=== PATIENT | female | born 1980 | race Caucasian/White ===

== ENCOUNTER 2018-08-31 19:57 | Emergency (ER) | payer OTHER ==
[~2018-08-31] VITALS: Ht 162.5 cm; Wt 59.0 kg
[2018-08-31 19:57] VITALS: BP 115/64
[~2018-08-31 19:57] MED LIST: BACTRIM DS 8001 TA1 PO; CEPHALEXIN500 M1 PO; CIPRO500 MG PO; DARVOCET N 1001 TAB PO; FLAGYL500 MG PO; GEODON40 MG PO; HYDROCODONE BIT1 T11 PO; LAMICTAL25 MG PO; LITHIUM CARBON300 MG PO; MOTRIN800 MG PO; Motrin,Rufen800 MG PO; PRAZOSIN HCL2 MG PO; ZYPREXA5 M1 PO; Zofran4 MG PO
[2018-08-31 20:46] LABS: BILIRUBIN NEGATIVE (NEGATIVE); BLOOD TRACE-LYSED (NEGATIVE); CLARITY CLEAR (CLEAR); COLOR YELLOW (YELLOW); GLUCOSE NEGATIVE (NEGATIVE); KETONE NEGATIVE (NEGATIVE); LEUKO ESTERASE TRACE (NEGATIVE); NITRITE NEGATIVE (NEGATIVE); UROBILINOGEN 0.2 E.U./dl (0.2-1.0)
[2018-08-31 21:08] LABS: BACTERIA 1+; MUCOUS TRACE; WBC 16-20 wbc/hpf (0-5)
[2018-08-31] MEDS ORDERED: FLAGYL500 MG PO (21:15)
== END 2018-08-31 21:29 | disposition home or self-care (01) ==
LOC: ED 19:57
PROVIDERS: Nurse Practitioner Family
DX: S62.367A Nondisplaced fracture of neck of fifth metacarpal bone, left hand, initial encounter for closed fracture (principal); A59.01 Trichomonal vulvovaginitis; Z79.899 Other long term (current) drug therapy; X58.XXXA Exposure to other specified factors, initial encounter; Y93.89 Activity, other specified; Y92.89 Other specified places as the place of occurrence of the external cause; Y99.8 Other external cause status

== ENCOUNTER 2019-03-11 09:23 | Emergency (ER) | payer OTHER ==
[~2019-03-11] VITALS: Ht 162.5 cm; Wt 59.0 kg
[~2019-03-11 09:23] MED LIST changes: +PREDNISONE20 M1 PO
[2019-03-11 09:25] VITALS: BP 107/35
[2019-03-11] MEDS ORDERED: DIVALPROEX SOD500 MG PO (09:26)
[2019-03-11] MEDS ORDERED: DIVALPROEX SOD250 MG PO (09:26)
[2019-03-11] MEDS ORDERED: 'CLONIDINE0.1 MG PO (09:26)
[2019-03-11] MEDS ORDERED: PREDNISONE20 M1 PO (12:44)
[2019-03-11] MEDS ORDERED: TESSALON PERLE100 M1 PO (12:44)
[2019-03-11] MEDS ORDERED: PROVENTIL HFA6.7 GM INH (12:44)
== END 2019-03-11 12:54 | disposition home or self-care (01) ==
LOC: ED 09:23
DX: J40 Bronchitis, not specified as acute or chronic (principal); J02.9 Acute pharyngitis, unspecified; F17.200 Nicotine dependence, unspecified, uncomplicated; Z79.899 Other long term (current) drug therapy

== ENCOUNTER 2020-10-22 23:18 | Emergency (ER) | payer OTHER ==
[~2020-10-22 23:18] MED LIST changes: +'CLONIDINE0.1 MG PO; +DIVALPROEX SOD250 MG PO; +DIVALPROEX SOD500 MG PO; +PROVENTIL HFA6.7 GM INH; +TESSALON PERLE100 M1 PO
[2020-10-22 23:28] VITALS: BP 136/59
[2020-10-23] MEDS ORDERED: OMNICEF300 MG PO (00:01)
[2020-10-23] MEDS ORDERED: REESE'S PI50 MG/1 ML PO (00:01)
== END 2020-10-23 00:45 | disposition home or self-care (01) ==
LOC: ED 23:18
DX: H66.91 Otitis media, unspecified, right ear (principal); L98.9 Disorder of the skin and subcutaneous tissue, unspecified; Z79.899 Other long term (current) drug therapy

== ENCOUNTER 2023-01-26 11:03 | Emergency (ER) | payer OTHER ==
[~2023-01-26] VITALS: Ht 162.5 cm; Wt 59.0 kg
[~2023-01-26 11:03] MED LIST changes: +OMNICEF300 MG PO; +REESE'S PI50 MG/1 ML PO
[2023-01-26 11:14] VITALS: BP 100/59
[2023-01-26 11:53] LABS: BASO % 0.4 % (0.0-1.0); EOS # 0.1 10*3/uL (0.0-0.4); EOS % 0.9 % (1.0-4.0); HEMATOCRIT 45.5 % (37.0-47.0); LYMPH % 10.7 % (27.0-41.0); MEAN CELL VOLUME 86.7 fl (81.0-99.0); MEAN CORPUSCULAR HGB 28.6 pg (27.0-31.0); MONO # 0.7 10*3/uL (0.1-1.0); MONO % 8.1 % (3.0-9.0); NEUT # 7.1 10*3/uL (2.3-7.9); NEUT % 79.7 % (47.0-73.0); PLATELET COUNT AUTOMATED 275 10*3/uL (130-400); RED BLOOD COUNT 5.25 10*6/uL (4.10-5.10); RED CELL DISTRI WIDTH 13.5 % (0-14.5); WHITE BLOOD COUNT 8.9 10*3/uL (4.8-10.8)
[2023-01-26 12:11] LABS: ALKALINE PHOSPHATASE 76 U/L (46-116); BUN 11 mg/dl (9-23); CHLORIDE 107 mmol/L (98-107); LIPASE 21 U/L (12-53); POTASSIUM 3.6 mmol/L (3.4-5.1); SGPT/ALT 10 U/L (10-49); TOTAL PROTEIN 6.7 gm/dL (6.0-8.0)
[2023-01-26 12:13] LABS: ETHYL ALCOHOL < 3.0 mg/dl (<3)
[2023-01-26 13:24] LABS: BILIRUBIN Negative (Negative); BLOOD Negative (Negative); CLARITY Clear (Clear); COLOR Yellow (Yellow); GLUCOSE Negative (Negative); KETONE Trace (Negative); LEUKO ESTERASE Negative (Negative); NITRITE Negative (Negative); PH 5.5 (4.5-8.0); SPECIFIC GRAVITY >= 1.030 (1.001-1.030)
[2023-01-26 13:32] LABS: BACTERIA TRACE; MUCOUS 1+; URINE AMPHETAMINES Positive (1000ng/ml); URINE BARBITURATES Negative (200ng/ml); URINE BENZODIAZEPINES Negative (200ng/ml); URINE CANNABINOIDS (THC) Positive (50ng/ml); URINE COCAINE Negative (300ng/ml); URINE METHADONE Negative (300ng/ml); URINE OPIATES Positive (300ng/ml); URINE PHENCYCLIDINE Negative (25ng/ml)
== END 2023-01-26 16:50 | disposition short-term general hospital (02) ==
LOC: ED 11:03
PROVIDERS: Physician Assistant
DX: K56.699 Other intestinal obstruction unspecified as to partial versus complete obstruction (principal); F31.9 Bipolar disorder, unspecified; Z88.8 Allergy status to other drugs, medicaments and biological substances; Z98.890 Other specified postprocedural states; Z79.899 Other long term (current) drug therapy

== ENCOUNTER 2023-07-02 01:00 | Emergency (ER) | payer OTHER ==
[~2023-07-02] VITALS: Ht 167.6 cm; Wt 68.0 kg
[2023-07-02 01:27] LABS: BILIRUBIN Negative (Negative); BLOOD 1+ (Negative); CLARITY Clear (Clear); COLOR Yellow (Yellow); GLUCOSE Negative (Negative); KETONE Negative (Negative); LEUKO ESTERASE 1+ (Negative); NITRITE Positive (Negative); PH 5.5 (4.5-8.0)
[2023-07-02 01:28] LABS: BASO # 0.1 10*3/uL (0.0-0.1); BASO % 0.6 % (0.0-1.0); EOS # 0.1 10*3/uL (0.0-0.4); EOS % 0.6 % (1.0-4.0); LYMPH # 1.5 10*3/uL (1.3-4.4); MEAN CELL VOLUME 87.5 fl (81.0-99.0); MEAN CORPUSCULAR HGB 29.5 pg (27.0-31.0); MEAN CORPUSCULAR HGB CONC 33.7 g/dl (33.0-37.0); MEAN PLATELET VOLUME 9.4 fl (9.6-12.3); MONO # 0.7 10*3/uL (0.1-1.0); NEUT # 5.9 10*3/uL (2.3-7.9); NEUT % 72.6 % (47.0-73.0); PLATELET COUNT AUTOMATED 331 10*3/uL (130-400); RED CELL DISTRI WIDTH 13.2 % (0-14.5); WHITE BLOOD COUNT 8.2 10*3/uL (4.8-10.8)
[2023-07-02 01:34] LABS: BACTERIA 3+; WBC 41-50 wbc/hpf (0-5)
[2023-07-02 01:35] LABS: URINE AMPHETAMINES Positive (1000ng/ml); URINE BARBITURATES Negative (200ng/ml); URINE BENZODIAZEPINES Negative (200ng/ml); URINE CANNABINOIDS (THC) Positive (50ng/ml); URINE COCAINE Negative (300ng/ml); URINE METHADONE Negative (300ng/ml); URINE OPIATES Negative (300ng/ml); URINE PHENCYCLIDINE Negative (25ng/ml)
[2023-07-02 01:49] LABS: ALKALINE PHOSPHATASE 97 U/L (46-116); BUN 12 mg/dl (9-23); CHLORIDE 106 mmol/L (98-107); CPK 217 U/L (34-171); POTASSIUM 3.6 mmol/L (3.4-5.1); SGPT/ALT 75 U/L (10-49); TOTAL PROTEIN 7.3 gm/dL (6.0-8.0)
[2023-07-02 01:50] LABS: ETHYL ALCOHOL < 3.0 mg/dl (<3)
[2023-07-02] MEDS ORDERED: CIPRO500 MG PO (06:42)
[2023-07-02 13:25] VITALS: BP 129/81
== END 2023-07-02 16:06 | disposition home or self-care (01) ==
LOC: ED 01:00
PROVIDERS: Internal Medicine
DX: F15.10 Other stimulant abuse, uncomplicated (principal); R79.89 Other specified abnormal findings of blood chemistry; D64.9 Anemia, unspecified; N39.0 Urinary tract infection, site not specified; F31.9 Bipolar disorder, unspecified; Z88.8 Allergy status to other drugs, medicaments and biological substances; F17.290 Nicotine dependence, other tobacco product, uncomplicated; Z79.899 Other long term (current) drug therapy

== ENCOUNTER 2023-12-16 05:38 | Emergency (ER) | payer OTHER ==
[~2023-12-16] VITALS: Ht 167.6 cm; Wt 54.4 kg
[2023-12-16] MEDS ORDERED: Acetaminophen/Hydrocodone 5 MG/325 MG TABLET PO ONE (05:50)
[2023-12-16] MEDS ORDERED: Ondansetron Hydrochloride 4 MG TAB SL ONE (05:50)
[2023-12-16 05:54] VITALS: BP 143/71
[2023-12-16] MEDS ORDERED: Tdap Vaccine 0.5 ML SYR (Adult Vaccine) IM ONE (06:55)
[2023-12-16] MEDS ORDERED: Bacitracin Zinc 14 GM TUBE T ONE (08:20)
[2023-12-16] MEDS ORDERED: CEPHALEXIN500 M1 PO (08:26)
[2023-12-17 07:06] LABS: HEPATITIS B SURFACE AG Negative (Negative)
== END 2023-12-16 08:41 | disposition home or self-care (01) ==
LOC: ED 05:38
PROVIDERS: Internal Medicine
DX: S61.511A Laceration without foreign body of right wrist, initial encounter (principal); Z88.8 Allergy status to other drugs, medicaments and biological substances; W01.0XXA Fall on same level from slipping, tripping and stumbling without subsequent striking against object, initial encounter; Y93.89 Activity, other specified; Y92.002 Bathroom of unspecified non-institutional (private) residence as the place of occurrence of the external cause; Y99.8 Other external cause status

== ENCOUNTER 2024-06-14 20:50 | Emergency (ER) | payer OTHER ==
[~2024-06-14] VITALS: Ht 167.6 cm; Wt 54.4 kg
[2024-06-14 21:00] VITALS: BP 123/71
[2024-06-14 21:12] LABS: BILIRUBIN 1+ (Negative); BLOOD Negative (Negative); CLARITY Cloudy (Clear); COLOR Dark Yellow (Yellow); GLUCOSE Negative (Negative); KETONE 1+ (Negative); LEUKO ESTERASE Trace (Negative); NITRITE Negative (Negative); PH 5.5 (4.5-8.0); SPECIFIC GRAVITY >= 1.030 (1.001-1.030)
[2024-06-14 21:19] LABS: BASO % 0.6 % (0.0-1.0); EOS # 0.2 10*3/uL (0.0-0.4); EOS % 2.4 % (1.0-4.0); HEMATOCRIT 39.3 % (37.0-47.0); LYMPH % 31.4 % (27.0-41.0); MEAN CELL VOLUME 90.1 fl (81.0-99.0); MEAN CORPUSCULAR HGB 29.8 pg (27.0-31.0); MEAN CORPUSCULAR HGB CONC 33.1 g/dl (33.0-37.0); MONO # 0.6 10*3/uL (0.1-1.0); MONO % 9.4 % (3.0-9.0); NEUT # 3.5 10*3/uL (2.3-7.9); NEUT % 55.9 % (47.0-73.0); PLATELET COUNT AUTOMATED 244 10*3/uL (130-400); RED BLOOD COUNT 4.36 10*6/uL (4.10-5.10); RED CELL DISTRI WIDTH 12.9 % (0-14.5); WHITE BLOOD COUNT 6.3 10*3/uL (4.8-10.8)
[2024-06-14 21:20] LABS: URINE AMPHETAMINES Positive (1000ng/ml); URINE BARBITURATES Negative (200ng/ml); URINE BENZODIAZEPINES Negative (200ng/ml); URINE CANNABINOIDS (THC) Positive (50ng/ml); URINE COCAINE Negative (300ng/ml); URINE METHADONE Negative (300ng/ml); URINE OPIATES Negative (300ng/ml); URINE PHENCYCLIDINE Negative (25ng/ml)
[2024-06-14 21:23] LABS: BACTERIA 1+; MUCOUS 2+
[2024-06-14 21:38] LABS: ALKALINE PHOSPHATASE 75 U/L (46-116); BUN 10 mg/dl (9-23); CHLORIDE 105 mmol/L (98-107); POTASSIUM 3.3 mmol/L (3.4-5.1); SGPT/ALT 72 U/L (5-49); TOTAL PROTEIN 6.7 gm/dL (6.0-8.0)
[2024-06-14 21:39] LABS: ETHYL ALCOHOL < 3.0 mg/dl (<3)
[2024-06-14] MEDS ORDERED: POTASSIUM CHLORIDE 20 MEQ TAB PO ONE (22:30)
== END 2024-06-14 22:29 | disposition home or self-care (01) ==
LOC: ED 20:50
PROVIDERS: Internal Medicine
DX: R79.89 Other specified abnormal findings of blood chemistry (principal); E87.6 Hypokalemia; F15.90 Other stimulant use, unspecified, uncomplicated; F31.9 Bipolar disorder, unspecified; Z88.8 Allergy status to other drugs, medicaments and biological substances

== ENCOUNTER 2024-08-14 05:34 | Emergency (ER) | payer OTHER ==
[~2024-08-14] VITALS: Ht 162.5 cm; Wt 56.8 kg
[2024-08-14 05:36] VITALS: BP 115/60
[2024-08-14 06:08] LABS: BASO # 0.1 10*3/uL (0.0-0.1); BASO % 0.7 % (0.0-1.0); EOS # 0.3 10*3/uL (0.0-0.4); EOS % 3.4 % (1.0-4.0); HEMATOCRIT 37.7 % (37.0-47.0); LYMPH # 2.6 10*3/uL (1.3-4.4); LYMPH % 35.3 % (27.0-41.0); MEAN CELL VOLUME 92.2 fl (81.0-99.0); MEAN CORPUSCULAR HGB 30.3 pg (27.0-31.0); MEAN CORPUSCULAR HGB CONC 32.9 g/dl (33.0-37.0); MEAN PLATELET VOLUME 9.4 fl (9.6-12.3); MONO % 13.2 % (3.0-9.0); NEUT # 3.4 10*3/uL (2.3-7.9); NEUT % 47.1 % (47.0-73.0); PLATELET COUNT AUTOMATED 270 10*3/uL (130-400); RED BLOOD COUNT 4.09 10*6/uL (4.10-5.10); RED CELL DISTRI WIDTH 13.1 % (0-14.5); WHITE BLOOD COUNT 7.3 10*3/uL (4.8-10.8)
[2024-08-14 06:28] LABS: ALKALINE PHOSPHATASE 111 U/L (46-116); BUN 10 mg/dl (9-23); CHLORIDE 107 mmol/L (98-107); LIPASE 31 U/L (12-53); POTASSIUM 3.4 mmol/L (3.4-5.1); SGPT/ALT 241 U/L (5-49); TOTAL PROTEIN 6.7 gm/dL (6.0-8.0)
[2024-08-14] MEDS ORDERED: Ondansetron4 MG PO (07:16)
== END 2024-08-14 07:20 | disposition home or self-care (01) ==
LOC: ED 05:34
PROVIDERS: Internal Medicine
DX: B34.9 Viral infection, unspecified (principal); R79.89 Other specified abnormal findings of blood chemistry; F31.9 Bipolar disorder, unspecified; R11.0 Nausea; R19.7 Diarrhea, unspecified; Z91.048 Other nonmedicinal substance allergy status

== ENCOUNTER 2024-09-12 14:33 | Emergency (ER) | payer OTHER ==
[~2024-09-12] VITALS: Wt 60.3 kg
[~2024-09-12 14:33] MED LIST changes: +Ondansetron4 MG PO
[2024-09-12 14:37] VITALS: BP 130/81
[2024-09-12] MEDS ORDERED: Ketorolac Tromethamine 15 MG/ML VIAL IM ONE (15:35)
== END 2024-09-12 15:45 | disposition home or self-care (01) ==
LOC: ED 14:33
DX: M25.532 Pain in left wrist (principal); F31.9 Bipolar disorder, unspecified

== ENCOUNTER 2024-11-13 14:00 | Emergency (ER) | payer OTHER ==
[~2024-11-13] VITALS: Ht 162.5 cm; Wt 54.4 kg
[2024-11-13] MEDS ORDERED: Amoxicillin/Clavulanate Pota 875 MG TAB PO ONE (14:25)
[2024-11-13] MEDS ORDERED: Acetaminophen/Hydrocodone 5 MG/325 MG TABLET PO ONE (14:25)
[2024-11-13 14:37] LABS: BASO % 0.2 % (0.0-1.0); EOS % 0.1 % (1.0-4.0); HEMATOCRIT 36.7 % (37.0-47.0); MEAN CELL VOLUME 89.3 fl (81.0-99.0); MEAN CORPUSCULAR HGB 29.7 pg (27.0-31.0); MEAN CORPUSCULAR HGB CONC 33.2 g/dl (33.0-37.0); MEAN PLATELET VOLUME 9.5 fl (9.6-12.3); MONO # 0.8 10*3/uL (0.1-1.0); MONO % 4.1 % (3.0-9.0); NEUT # 17.5 10*3/uL (2.3-7.9); NEUT % 89.1 % (47.0-73.0); PLATELET COUNT AUTOMATED 259 10*3/uL (130-400); RED BLOOD COUNT 4.11 10*6/uL (4.10-5.10); RED CELL DISTRI WIDTH 12.7 % (0-14.5); WHITE BLOOD COUNT 19.7 10*3/uL (4.8-10.8)
[2024-11-13 15:01] LABS: BUN 6 mg/dl (9-23); CHLORIDE 99 mmol/L (98-107); POTASSIUM 3.5 mmol/L (3.4-5.1)
[2024-11-13] MEDS ORDERED: SODIUM CHLORIDE 0.9% 1,000 ML IV ONE ×2 (15:40→17:15)
[2024-11-13 16:20] LABS: BILIRUBIN Negative (Negative); BLOOD Negative (Negative); CLARITY Turbid (Clear); COLOR Yellow (Yellow); GLUCOSE Negative (Negative); KETONE Negative (Negative); LEUKO ESTERASE Negative (Negative); NITRITE Negative (Negative); SPECIFIC GRAVITY 1.015 (1.001-1.030)
[2024-11-13 16:28] LABS: PH 8.5 (4.5-8.0)
[2024-11-13 16:29] LABS: BACTERIA 1+; RBC 0-2 rbc/hpf (0-2)
[2024-11-13] MEDS ORDERED: Ceftriaxone Sodium 1 GM/10 ML SYR IV ONE (17:15)
[2024-11-13] MEDS ORDERED: IOHEXOL 300 MG/ML 100 ML VIAL IV ONE (17:20)
[2024-11-13] MEDS ORDERED: Ketorolac Tromethamine 15 MG/ML VIAL IV ONE (18:15)
[2024-11-13 19:06] VITALS: BP 106/61
[2024-11-13] MEDS ORDERED: AMOX-CLAV 875-1 EACH PO (19:33)
== END 2024-11-13 19:54 | disposition home or self-care (01) ==
LOC: ED 14:00
PROVIDERS: Nurse Practitioner Family
DX: K04.7 Periapical abscess without sinus (principal); R50.9 Fever, unspecified; Z88.8 Allergy status to other drugs, medicaments and biological substances